=== PATIENT | male | born 2005 | race Caucasian/White ===

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

== ENCOUNTER 2023-06-19 21:45 | Emergency (ER) | payer BC ==
[2023-06-19 22:42] LABS: CORONAVIRUS COVID-19 NAA NEGATIVE (NEGATIVE); INFLUENZA A NAA NEGATIVE (NEGATIVE); INFLUENZA B NAA NEGATIVE (NEGATIVE)
[2023-06-19] MEDS ORDERED: Lidocaine 2% Viscous Solution 15 ML UD PO ONE (22:54)
[2023-06-19] MEDS ORDERED: Dexamethasone 10 MG/ML SDV PO ONE (22:54)
[2023-06-19 23:09] VITALS: BP 140/65; PULSE 63
== END 2023-06-19 23:08 | disposition home or self-care (01) ==
LOC: MW.ED 21:45
DX: J02.9 Acute pharyngitis, unspecified (principal); Z20.822 Contact with and (suspected) exposure to COVID-19; Z91.018 Allergy to other foods
CPT/HCPCS: 0240U; 87651; 99283; A9270; J8540

== ENCOUNTER 2024-02-12 18:26 | Emergency (ER) | payer BC, MEDICAID ==
[2024-02-12 21:01] LABS: BASOPHILS ABSOLUTE AUTO 0.03 K/uL (0.00-0.20); BASOPHILS PERCENT AUTO 0.4 % (0.0-1.0); EOSINOPHILS ABSOLUTE AUTO 0.07 K/uL (0.00-0.45); HEMATOCRIT 35.7 % (42.0-52.0); HEMOGLOBIN 13.1 g/dL (14.0-18.0); IMMATURE GRAN ABSOLUTE AUTO 0.03 K/uL (0.00-0.05); IMMATURE GRAN PERCENT AUTO 0.4 % (0.0-0.4); LYMPHOCYTES ABSOLUTE AUTO 2.43 K/uL (1.00-4.80); LYMPHOCYTES PERCENT AUTO 35.3 % (24.0-44.0); MEAN CORPUSCULAR HEMOGLOBIN 33.7 pg (28.0-32.0); MEAN CORPUSCULAR HGB CONC 36.7 g/dL (32.0-36.0); MEAN CORPUSCULAR VOLUME 91.8 fL (83.0-99.0); MEAN PLATELET VOLUME 9.7 fL (9.4-12.4); MONOCYTES ABSOLUTE AUTO 0.37 K/uL (0.00-0.80); MONOCYTES PERCENT AUTO 5.4 % (0.0-8.0); NEUTROPHILS ABSOLUTE AUTO 3.96 K/uL (1.80-7.70); NEUTROPHILS PERCENT AUTO 57.5 % (41.0-71.0); PLATELET COUNT,PLT 181 K/uL (150-400); RED BLOOD CELL COUNT 3.89 M/uL (4.52-5.90); WHITE BLOOD CELL COUNT,WBC 6.89 K/uL (3.9-11.3)
[2024-02-12 21:22] LABS: A/G RATIO 1.5 (0.9-1.6); ALBUMIN 4.4 g/dL (3.4-5.0); BILIRUBIN TOTAL 2.7 mg/dL (0.2-1.0); CARBON DIOXIDE,CO2 26.1 mmol/L (21.0-32.0); EST CRCL DRUG DOSING (CG) 129.33 mL/min; POTASSIUM,K 3.8 mmol/L (3.5-5.1); PROTEIN TOTAL,TP 7.4 g/dL (6.4-8.2)
[2024-02-12 22:33] VITALS: BP 130/64; PULSE 61
[2024-02-16 05:07] LABS: LEAD <2.0 ug/dL (<=4.9)
== END 2024-02-12 22:32 | disposition home or self-care (01) ==
LOC: MW.ED 18:26
DX: R10.9 Unspecified abdominal pain (principal); R11.0 Nausea; Z77.011 Contact with and (suspected) exposure to lead
CPT/HCPCS: 36415; 80053; 83655; 85025; 99284

== ENCOUNTER 2025-06-08 15:58 | Emergency (ER) | payer BC ==
[2025-06-08] MEDS ORDERED: Sodium Chloride 0.9% 10 ML Syringe FLUSH PRN (16:34)
[2025-06-08] MEDS ORDERED: Sodium Chloride 0.9% 2.5 ML Syringe FLUSH PRN (16:34)
[2025-06-08] MEDS: Ondansetron 4 MG/2 ML SDV IVPUSH ONE (16:45)
[2025-06-08 16:47] LABS: BASOPHILS ABSOLUTE AUTO 0.02 K/uL (0.00-0.20); BASOPHILS PERCENT AUTO 0.3 % (0.0-1.0); EOSINOPHILS ABSOLUTE AUTO 0.14 K/uL (0.00-0.45); EOSINOPHILS PERCENT AUTO 2.3 % (0.0-6.0); IMMATURE GRAN ABSOLUTE AUTO 0.02 K/uL (0.00-0.05); IMMATURE GRAN PERCENT AUTO 0.3 % (0.0-0.4); LYMPHOCYTES ABSOLUTE AUTO 1.37 K/uL (1.00-4.80); LYMPHOCYTES PERCENT AUTO 22.3 % (24.0-44.0); MEAN PLATELET VOLUME 10.0 fL (9.4-12.4); MONOCYTES ABSOLUTE AUTO 0.74 K/uL (0.00-0.80); MONOCYTES PERCENT AUTO 12.1 % (0.0-8.0); NEUTROPHILS ABSOLUTE AUTO 3.84 K/uL (1.80-7.70); NEUTROPHILS PERCENT AUTO 62.7 % (41.0-71.0); NRBC ABSOLUTE 0.00 K/uL (0.00-0.02); NRBC PERCENT 0.0 /100WBC (0.0-0.2); PLATELET COUNT,PLT 178 K/uL (150-400); RED BLOOD CELL COUNT 3.65 M/uL (4.52-5.90); WHITE BLOOD CELL COUNT,WBC 6.13 K/uL (3.9-11.3)
[2025-06-08 16:59] LABS: INR 1.13 (0.86-1.11)
[2025-06-08] MEDS: Iopamidol 755 MG/ML 500 ML Multipack Bottle IVPUSH STA (17:04)
[2025-06-08 17:10] LABS: A/G RATIO 1.2 (0.9-1.6); ALANINE AMINOTRANSFERASE,ALT 23.0 IU/L (14-63); ASPARTATE AMNIOTRANSFERASE,AST 26.0 IU/L (15-37); BILIRUBIN TOTAL 6.1 mg/dL (0.2-1.0); BLOOD UREA NITROGEN,BUN 22.0 mg/dL (7.0-18.0); CARBON DIOXIDE,CO2 27.6 mmol/L (21.0-32.0); CHLORIDE,CL 103.0 mmol/L (98-107); CREATININE 1.0 mg/dL (0.8-1.3); EST CRCL DRUG DOSING (CG) 128.26 mL/min; ESTIMATED GFR 110.0 mL/min (>60); GLUCOSE RANDOM 91.0 mg/dL (74-106); POTASSIUM,K 4.0 mmol/L (3.5-5.1); PROTEIN TOTAL,TP 7.5 g/dL (6.4-8.2); SODIUM,NA 139.0 mmol/L (136-148)
[2025-06-08 18:26] LABS: BILIRUBIN DIRECT 0.2 mg/dL (0.0-0.5); BILIRUBIN INDIRECT 5.9
[2025-06-08 20:58] VITALS: BP 126/63; PULSE 49
[2025-06-11 18:07] LABS: HAV AB IGM Negative (Negative); HBC IGM Negative (Negative); HEP B SURG AG Negative (Negative); HEP C AB BY CIA Negative (Negative); HEP C AB BY CIA INDEX 0.05 IV
== END 2025-06-08 20:57 | disposition home or self-care (01) ==
LOC: MW.ED 15:58
DX: E80.6 Other disorders of bilirubin metabolism (principal)
CPT/HCPCS: 36415; 74177; 74177-26; 80053; 80074; 82247; 82248; 83010; 83615; 83690; 85025; 85610; 86308; 96361; 96374; 99283; 99285-25; J2405; J7030; Q9967